=== PATIENT | male | born 1940 | race Caucasian/White ===

== ENCOUNTER 2016-10-16 10:44 | Observation (INO) | payer MEDICARE, OTHER ==
[~2016-10-16] VITALS: Ht 177.8 cm; Wt 87.8 kg
[~2016-10-16 10:44] MED LIST: ATOR10TA PO; LATA2.5D3 EACHEYE; LEVO5DRO EACHEYE; METF500T4 PO
[2016-10-16 11:12] VITALS: BP 146/84
[2016-10-16] MEDS ORDERED: LACTATED RINGERS 1,000 ML IV SCH (11:17)
[2016-10-16] MEDS ORDERED: BUPIVACAINE/PF 0.5% ONE (12:34)
[2016-10-16] MEDS ORDERED: FENTANYL PF 100 MCG/2ML ONE ×3 (12:46→16:39)
[2016-10-16] MEDS ORDERED: MIDAZOLAM 1 MG/ML, 2ML ONE (12:46)
[2016-10-16] MEDS ORDERED: SUCCINYLCHOLINE 20 MG/ML, 10ML ONE (12:57)
[2016-10-16] MEDS ORDERED: ONDANSETRON 2MG/ML, 2ML ONE (12:57)
[2016-10-16] MEDS ORDERED: NEOSTIGMINE 1 MG/ML, 10ML ONE (12:57)
[2016-10-16] MEDS ORDERED: ROCURONIUM 10 MG/ML ONE (12:57)
[2016-10-16] MEDS ORDERED: CEFAZOLIN 1,000 MG ONE (12:57)
[2016-10-16] MEDS ORDERED: PROPOFOL 10 MG/ML, 20ML ONE (12:57)
[2016-10-16] MEDS ORDERED: GLYCOPYRROLATE 0.2MG/1ML ONE (12:57)
[2016-10-16] MEDS ORDERED: HYDROcodone/APAP 7.5-325MG/15ML UDC PO PRN (13:00)
[2016-10-16] MEDS ORDERED: hydrALAzine 20 MG/ML, 1ML IV PRN ×2 (13:00→19:00)
[2016-10-16] MEDS ORDERED: METOPROLOL 1 MG/ML, 5ML IV PRN (13:00)
[2016-10-16] MEDS ORDERED: HYDROmorphone 1 MG/ML, 1ML IV PRN (13:00)
[2016-10-16] MEDS ORDERED: EPHEDRINE 50 MG/ML, 1ML IVPush PRN (13:00)
[2016-10-16] MEDS ORDERED: ONDANSETRON 2MG/ML, 2ML IVPush PRN (13:00)
[2016-10-16] MEDS ORDERED: METOCLOPRAMIDE 5 MG/ML, 2ML IV PRN (13:00)
[2016-10-16] MEDS ORDERED: OXYcodone 5 MG/5 ML ORAL.SOL UDC PO PRN (13:00)
[2016-10-16] MEDS ORDERED: ACETAMINOPHEN 325 MG TABLET PO PRN ×2 (13:00→19:00)
[2016-10-16] MEDS ORDERED: KETOROLAC 30 MG/1 ML IV PRN (13:00)
[2016-10-16] MEDS ORDERED: FENTANYL PF 100 MCG/2ML IV PRN (13:00)
[2016-10-16] MEDS ORDERED: LABETALOL 5MG/ML, 20ML IV PRN (13:00)
[2016-10-16] MEDS ORDERED: MEPERIDINE/PF 25MG/0.5ML IVPush PRN (13:00)
[2016-10-16] MEDS ORDERED: ALBUTEROL SULFATE 2.5 MG/3 ML NPPB PRN (13:00)
[2016-10-16] MEDS ORDERED: ACETAMINOPHEN 650 MG/20.3 ML UDC ONE (16:39)
[2016-10-16] MEDS ORDERED: OXYcodone 5 MG/5 ML ORAL.SOL UDC ONE (16:39)
[2016-10-16] MEDS ORDERED: DIPHENHYDRAMINE 25 MG CAPSULE PO PRN (19:00)
[2016-10-16] MEDS ORDERED: morphine SULFATE 10 MG/ML, 1ML IV PRN (19:00)
[2016-10-16] MEDS ORDERED: ACETAMINOPHEN 650 MG SUPP PR PRN (19:00)
[2016-10-16] MEDS ORDERED: ENALAPRILAT 1.25 MG/ML, 2ML IV PRN (19:00)
[2016-10-16] MEDS ORDERED: DIPHENHYDRAMINE 50 MG/ML, 1ML IV PRN (19:00)
[2016-10-16] MEDS ORDERED: ATORVASTATIN 10 MG TABLET PO SCH (21:00)
[2016-10-16] MEDS ORDERED: metFORMIN 500 MG TABLET PO SCH (21:00)
[2016-10-16] MEDS: LEVOBUNOLOL OPHTH 0.5%, 5ML OP SCH (21:00)
[2016-10-16] MEDS ORDERED: LATANOPROST OPHTH 0.005%, 2.5ML OP SCH (21:00)
[2016-10-16] MEDS: POTASSIUM CHLORIDE 20 MEQ in D5%-0.45% NACL 1,000 ML IV SCH (22:42)
[2016-10-16] MEDS: SODIUM CHLORIDE FLUSH 10ML SYR IVF SCH (22:43)
[2016-10-16 23:33] VITALS: BP 141/77
[2016-10-17] MEDS ORDERED: CEFOTETAN PMX 2GM/50ML 50 ML IVPB SCH ×2 (01:45→15:30)
[2016-10-17 04:00] VITALS: BP 129/68
[2016-10-17 04:47] LABS: HEMOGLOBIN 12.6 g/dL (13.7-18.0); WHITE BLOOD COUNT 12.1 x10^3/uL (3.4-10)
[2016-10-17 04:56] LABS: ASPARTATE AMINO TRANSFERASE 92 U/L (15-37); BLOOD UREA NITROGEN 17 mg/dL (7-18)
[2016-10-17] MEDS: POTASSIUM CHLORIDE 20 MEQ in D5%-0.45% NACL 1,000 ML IV SCH ×2 (07:05→15:10)
[2016-10-17 07:45] VITALS: BP 120/67
[2016-10-17] MEDS: SODIUM CHLORIDE FLUSH 10ML SYR IVF SCH (07:51)
[2016-10-17] MEDS: LEVOBUNOLOL OPHTH 0.5%, 5ML OP SCH (08:54)
[2016-10-17 13:33] VITALS: BP 124/73
[2016-10-17] MEDS ORDERED: ONDA4TAB12 PO (17:13)
[2016-10-17] MEDS ORDERED: HYDR-3240 PO (17:14)
[2016-10-17 17:30] VITALS: BP 123/74
== END 2016-10-17 17:45 | disposition home or self-care (01) ==
LOC: OUT 10:44 → 4NOR 18:22 → OUT 18:28 → 4NOR 18:28
PROVIDERS: ADMIT Surgery; ATTEND Surgery
DX: K80.12 Calculus of gallbladder with acute and chronic cholecystitis without obstruction (principal); E11.9 Type 2 diabetes mellitus without complications; E78.5 Hyperlipidemia, unspecified; J45.909 Unspecified asthma, uncomplicated; E78.00 Pure hypercholesterolemia, unspecified; Z90.49 Acquired absence of other specified parts of digestive tract; Z87.891 Personal history of nicotine dependence; Z80.8 Family history of malignant neoplasm of other organs or systems
CPT/HCPCS: 36415; 47563; 80053; 82962; 85025; 88304; 93005; 96365; 96375; G0378; J0330; J0690; J2250; J2405; J2704; J2710; J3010; J3480; J3490; J7120; S0074